=== PATIENT | female | born 1985 | race Caucasian/White ===

== ENCOUNTER 2018-11-07 15:17 | Emergency (ER) | payer OTHER ==
[~2018-11-07] VITALS: Ht 154.9 cm; Wt 51.3 kg
[~2018-11-07 15:17] MED LIST: ACETAMINOPHEN-1 EAC1 PO; ADDERALL 20 MG20 M1; AMOXICILLIN500 M1 PO; CIPROFLOXACIN500 M1 PO; CIPROFLOXACIN500 M3 PO; CLEOCIN HCL150 MG PO; IBUPROFEN 800800 M1 PO; KEFLEX500 MG PO; LIDOCAINE VISC100 M1 SWISH&SPIT; LORTABELXR PO; MEDROLDOSEPACK PO; NOHOMEMEDICATIONS; PENICILLIN V P500 MG PO; PERCOCET; PHENERGAN 25 MG25 M1 PO; PYRIDIUM200 MG PO; SUDAFED30 MG; VISTARIL 25 MG25 M1 OR; VISTARIL 25 MG25 M1 PO; ZPAK PO
[2018-11-07] MEDS ORDERED: DIFLUCAN200 MG PO (15:32)
[2018-11-07] MEDS ORDERED: ACYCLOVIR 400400 MG PO (16:47)
[2018-11-07 17:07] VITALS: BP 121/78
[2018-11-09 21:11] LABS: HSV 1 DNA Positive (Negative); HSV 2 DNA Negative (Negative)
== END 2018-11-07 17:07 | disposition home or self-care (01) ==
LOC: M.ERS 15:17
PROVIDERS: Nurse Practitioner Family
DX: A60.09 Herpesviral infection of other urogenital tract (principal); N80.9 Endometriosis, unspecified; Z88.6 Allergy status to analgesic agent; Z88.8 Allergy status to other drugs, medicaments and biological substances; Z90.711 Acquired absence of uterus with remaining cervical stump

== ENCOUNTER 2019-04-18 18:47 | Emergency (ER) | payer OTHER ==
[~2019-04-18] VITALS: Ht 154.9 cm; Wt 52.6 kg
[~2019-04-18 18:47] MED LIST changes: +ACYCLOVIR 400400 MG PO; +DIFLUCAN200 MG PO
[2019-04-18 19:17] LABS: ABSOLUTE EOSINOPHILS 0.1 thou/uL (0.0-0.7); ABSOLUTE LYMPHOCYTES 1.6 thou/uL (0.8-5.3); ABSOLUTE MONOCYTES 0.7 thou/uL (0.0-1.2); ABSOLUTE NEUTROPHILS 7.4 thou/uL (1.6-8.1); BASOPHILS 0.3 %; EOSINOPHILS 0.5 %; HEMATOCRIT 41.7 % (37.0-47.0); HEMOGLOBIN 14.2 gm/dL (12.0-15.0); MCH 30.8 pg (26.0-34.0); MCV 90.6 fL (80.0-100.0); MONOCYTES 6.8 %; MPV 7.4 fl. (7.2-11.1); NUCLEATED RBCS 0 /100WBC; PLATELET COUNT* 348 thou/uL (150-400); POLYS 76.4 %; RDW-CV 12.4 % (10.5-14.5); WBC 9.7 thou/uL (4.0-11.0)
[2019-04-18 19:26] LABS: URINE BILIRUBIN NEGATIVE (Negative); URINE BLOOD NEGATIVE (Negative); URINE CLARITY CLEAR; URINE COLOR YELLOW; URINE GLUCOSE-RANDOM NEGATIVE (Negative); URINE KETONES NEGATIVE (Negative); URINE LEUKOCYTES-REFLEX NEGATIVE (Negative); URINE NITRITE-REFLEX NEGATIVE (Negative); URINE PROTEIN NEGATIVE (Negative); URINE SPECIFIC GRAVITY <= 1.005 (1.005-1.030); URINE UROBILINOGEN 0.2 E.U./dl (0.2-1.0)
[2019-04-18 19:30] LABS: APTT 27.9 Seconds (25.0-31.3); PROTIME 10.1 Seconds (9.20-11.50)
[2019-04-18 19:33] LABS: ANION GAP 10 mmol/L (7-16); BUN 15 mg/dL (7-18); CALCIUM 9.2 mg/dL (8.5-10.1); CHLORIDE 104 mmol/L (98-107); CO2 26 mmol/L (21-32); CREATININE 0.8 mg/dL (0.6-1.3); GLUCOSE 114 mg/dL (70-99); POTASSIUM 4.1 mmol/L (3.5-5.1); SODIUM 140 mmol/L (136-145)
[2019-04-18 19:37] LABS: AMP/METHAMP POSITIVE (Negative); BARBITURATES Negative (Negative); BENZODIAZEPINES Negative (Negative); COCAINE Negative (Negative); METHADONE Negative (Negative); OPIATES Negative (Negative); PCP Negative (Negative); THC Negative (Negative)
[2019-04-18 19:38] LABS: ALKALINE PHOSPHATASE 60 U/L (46-116); MAGNESIUM 2.4 mg/dL (1.8-2.4); SGOT 9 U/L (15-37); SGPT 16 U/L (30-65); TOTAL BILIRUBIN 0.2 mg/dL (<0.1-1.0); TOTAL PROTEIN 7.6 g/dL (6.4-8.2); TROPONIN-I LEVEL <0.06 ng/mL (<0.06)
[2019-04-18 21:25] VITALS: BP 106/66
--- NOTE | 2019-04-19 13:18 | EKG ---
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
== END 2019-04-18 21:29 | disposition home or self-care (01) ==
LOC: M.ERS 18:47
PROVIDERS: Nurse Practitioner Psychiatric/Mental Health
DX: F15.288 Other stimulant dependence with other stimulant-induced disorder (principal); R51 Headache; Z88.6 Allergy status to analgesic agent

== ENCOUNTER 2019-04-22 08:11 | Emergency (ER) | payer OTHER ==
[~2019-04-22] VITALS: Ht 154.9 cm; Wt 52.2 kg
[2019-04-22] MEDS ORDERED: PROPRANOLOL 1010 MG PO (08:17)
[2019-04-22] MEDS ORDERED: TRAMADOL 50 MG50 MG PO (08:29)
[2019-04-22] MEDS ORDERED: AMOXICILLIN 50500 MG PO (08:29)
[2019-04-22 08:38] VITALS: BP 116/73
== END 2019-04-22 08:38 | disposition home or self-care (01) ==
LOC: M.ERS 08:11
DX: K02.9 Dental caries, unspecified (principal); N80.9 Endometriosis, unspecified; N30.10 Interstitial cystitis (chronic) without hematuria; Z90.711 Acquired absence of uterus with remaining cervical stump; Z88.6 Allergy status to analgesic agent

== ENCOUNTER 2019-05-14 12:24 | Emergency (ER) | payer OTHER ==
[~2019-05-14] VITALS: Ht 154.9 cm; Wt 52.2 kg
[~2019-05-14 12:24] MED LIST changes: +AMOXICILLIN 50500 MG PO; +PROPRANOLOL 1010 MG PO; +TRAMADOL 50 MG50 MG PO
[2019-05-14] MEDS ORDERED: GABAPENTIN 100100 MG PO (13:26)
[2019-05-14 13:43] VITALS: BP 127/65
== END 2019-05-14 13:44 | disposition home or self-care (01) ==
LOC: M.ERS 12:24
DX: M79.601 Pain in right arm (principal); N80.9 Endometriosis, unspecified; Z87.39 Personal history of other diseases of the musculoskeletal system and connective tissue; Z88.6 Allergy status to analgesic agent; Z90.711 Acquired absence of uterus with remaining cervical stump

== ENCOUNTER 2019-08-27 15:47 | Emergency (ER) | payer OTHER ==
[~2019-08-27] VITALS: Ht 154.9 cm; Wt 50.8 kg
[~2019-08-27 15:47] MED LIST changes: +GABAPENTIN 100100 MG PO
[2019-08-27] MEDS ORDERED: KEFLEX500 M1 PO (16:37)
[2019-08-27 16:46] VITALS: BP 120/82
== END 2019-08-27 16:47 | disposition home or self-care (01) ==
LOC: M.ERS 15:47
DX: S10.86XA Insect bite of other specified part of neck, initial encounter (principal); L03.221 Cellulitis of neck; N80.9 Endometriosis, unspecified; Z88.6 Allergy status to analgesic agent; Z88.8 Allergy status to other drugs, medicaments and biological substances; Z90.711 Acquired absence of uterus with remaining cervical stump; W57.XXXA Bitten or stung by nonvenomous insect and other nonvenomous arthropods, initial encounter; Y92.89 Other specified places as the place of occurrence of the external cause; Y93.89 Activity, other specified; Y99.8 Other external cause status

== ENCOUNTER 2020-01-03 14:19 | Emergency (ER) | payer OTHER ==
[~2020-01-03] VITALS: Ht 154.9 cm; Wt 52.2 kg
--- NOTE | ~2020-01-03 | EKG ---
[place] [address] ELECTROCARDIOGRAM REPORT Name: MARIEL BURNETT SARAH Room: [facility]#: [id number] Admission: 01/03/20 Attend Phys: Discharge: 01/03/20 Date of : [birth year] Date of Service: 01/03/20 1459 Report #: [id number] THIS REPORT FOR: cc: Sumit Polo MD, Andrew MD Epiphany, Epiphany MD ~ THIS REPORT FOR: //name// [facility] ED Test Date: 2020-01-03 Test Time: 14:59:17 Pat Name: MARILE BURNETT Department: Room: Gender: F Manager Hospital: [facility] : 1985 Requested By: Joyce Bloom Order Number: [id number] Ruben MD: Measurements Intervals [place] Rate: 73 P: 65 ND: 124 QRS: 67 QRSD: 195 T: 70 QT: 391 QTc: 431 Interpretive Statements Sinus rhythm Nonspecific intraventricular conduction delay Compared to ECG 04/18/2019 18:49:47 Intraventricular conduction delay now present Sinus tachycardia no longer present [email or web address] By: 1459 58 Epiphany Epiphany, [place] /EPI
[~2020-01-03 14:19] MED LIST changes: +KEFLEX500 M1 PO
[2020-01-03] MEDS ORDERED: GABAPENTIN100 MG PO (14:53)
[2020-01-03] MEDS ORDERED: CELECOXIB100 MG PO (14:54)
[2020-01-03 17:25] VITALS: BP 114/80
== END 2020-01-03 17:25 | disposition home or self-care (01) ==
LOC: M.ERS 14:19
DX: R07.89 Other chest pain (principal); T40.4X5A Adverse effect of other synthetic narcotics, initial encounter; Z90.711 Acquired absence of uterus with remaining cervical stump; Z88.6 Allergy status to analgesic agent; Z88.8 Allergy status to other drugs, medicaments and biological substances; Y92.89 Other specified places as the place of occurrence of the external cause

== ENCOUNTER 2021-01-21 08:23 | Emergency (ER) | payer OTHER ==
[~2021-01-21] VITALS: Ht 154.9 cm; Wt 59.0 kg
[~2021-01-21 08:23] MED LIST changes: +CELECOXIB100 MG PO; +GABAPENTIN100 MG PO
[2021-01-21] MEDS ORDERED: PROPRANOLOL 20M20 M1 PO (08:37)
[2021-01-21] MEDS ORDERED: CYMBALTA30 MG PO (08:37)
[2021-01-21] MEDS ORDERED: METHADONE HCL40 MG PO (08:38)
[2021-01-21 09:04] LABS: URINE BILIRUBIN NEGATIVE (Negative); URINE BLOOD NEGATIVE (Negative); URINE CLARITY CLEAR; URINE COLOR YELLOW; URINE GLUCOSE-RANDOM NEGATIVE (Negative); URINE KETONES NEGATIVE (Negative); URINE LEUKOCYTES NEGATIVE (Negative); URINE NITRITE NEGATIVE (Negative); URINE PROTEIN NEGATIVE (Negative); URINE UROBILINOGEN 0.2 E.U./dl (0.2-1.0)
[2021-01-21 09:21] LABS: HEMOGLOBIN 11.7 gm/dL (12.0-15.0); MCH 29.7 pg (26.0-34.0); MCHC 33.5 g/dL (28.0-37.0); MCV 88.8 fL (80.0-100.0); MPV 6.8 fl. (7.2-11.1); NUCLEATED RBCS 0 /100WBC; PLATELET COUNT* 272 thou/uL (150-400); RBC 3.94 mil/uL (4.20-5.00); RDW-CV 12.3 % (10.5-14.5); WBC 4.6 thou/uL (4.0-11.0)
[2021-01-21 09:28] LABS: CREATININE 0.8 mg/dL (0.6-1.3); POTASSIUM 3.8 mmol/L (3.5-5.1)
[2021-01-21 09:33] LABS: ALBUMIN 3.2 g/dL (3.4-5.0); DIRECT BILIRUBIN 0.1 mg/dL (<0.1-0.3); TOTAL BILIRUBIN 0.3 mg/dL (<0.1-1.0); TOTAL PROTEIN 6.7 g/dL (6.4-8.2)
[2021-01-21 09:43] LABS: ABSOLUTE EOSINOPHILS 0.5 thou/uL (0.0-0.7); ABSOLUTE LYMPHOCYTES 1.2 thou/uL (0.8-5.3); ABSOLUTE MONOCYTES 0.4 thou/uL (0.0-1.2); ABSOLUTE NEUTROPHILS 2.4 thou/uL (1.6-8.1)
[2021-01-21 09:44] LABS: PLATELET ESTIMATE ADEQUATE
[2021-01-21] MEDS ORDERED: LOMOTIL 2.5-0.01 TAB PO (10:08)
[2021-01-21] MEDS ORDERED: ATIVAN0.5 M1 PO (10:08)
[2021-01-21] MEDS ORDERED: ZOFRAN ODT4 MG PO (10:08)
[2021-01-21] MEDS ORDERED: BENTYL 10 MG CA10 MG PO (10:08)
[2021-01-21 10:20] VITALS: BP 97/62
--- NOTE | 2021-01-21 17:38 | EKG ---
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
== END 2021-01-21 10:20 | disposition home or self-care (01) ==
LOC: M.ERS 08:23
PROVIDERS: Emergency Medicine
DX: R00.2 Palpitations (principal); R19.7 Diarrhea, unspecified; F41.9 Anxiety disorder, unspecified; Z20.822 Contact with and (suspected) exposure to COVID-19; N80.9 Endometriosis, unspecified; Z88.6 Allergy status to analgesic agent; Z88.8 Allergy status to other drugs, medicaments and biological substances; Z90.711 Acquired absence of uterus with remaining cervical stump